=== PATIENT | female | born 1975 | race Asian ===

== ENCOUNTER 2021-12-26 07:40 | Emergency (ER) | payer BC, OTHER ==
[~2021-12-26] VITALS: Ht 149.9 cm; Wt 61.2 kg
[2021-12-26] MEDS ORDERED: IBUPROFEN 600 MG TAB PO STA (07:58)
== END 2021-12-26 09:20 | disposition home or self-care (01) ==
LOC: ER 07:51
DX: S16.1XXA Strain of muscle, fascia and tendon at neck level, initial encounter (principal); S40.012A Contusion of left shoulder, initial encounter; V43.52XA Car driver injured in collision with other type car in traffic accident, initial encounter; Y92.488 Other paved roadways as the place of occurrence of the external cause
CPT/HCPCS: 71046; 72050; 99283